=== PATIENT | male | born 1965 | race African-American/Black ===

== ENCOUNTER 2019-09-05 06:07 | Emergency (ER) | payer BC, MEDICAID ==
[~2019-09-05] VITALS: Ht 175.3 cm; Wt 75.0 kg
[2019-09-05] MEDS ORDERED: ONDANSETRON 4MG/2ML VIAL (J2405) IV ONE (06:45)
[2019-09-05] MEDS ORDERED: MORPHINE 4 MG/ML 1ML VIAL/SYRINGE (J2270) IV ONE (06:45)
[2019-09-05] MEDS ORDERED: NS 1,000 ML IV ONE (06:45)
[2019-09-05 07:02] LABS: BASO % 0.2 % (0.0-1.0); EOS # 0.1 10^3/uL (0.0-0.5); HEMATOCRIT 40.2 % (42.0-52.0); HEMOGLOBIN 13.3 g/dl (13.5-17.5); LYMPH # 1.8 10^3/uL (1.5-5.0); MEAN CORPUSCULAR HEMOGLOBIN 29.4 pg (27.0-33.0); MEAN CORPUSCULAR HGB CONC 33.1 g/dl (32.0-36.5); MEAN CORPUSCULAR VOLUME 88.7 fl (80.0-96.0); MONO # 0.8 10^3/uL (0.0-0.8); MONO % 9.3 % (0.0-5.0); NEUTROPHILS # 5.4 10^3/uL (1.5-8.5); NEUTROPHILS % 67.3 % (36.0-66.0); PLATELET COUNT, AUTOMATED 241 10^3/uL (150-450); RED BLOOD COUNT 4.53 10^6/uL (4.30-6.10); WHITE BLOOD COUNT 8.1 10^3/uL (4.0-10.0)
[2019-09-05 07:13] LABS: INR 0.98; PROTHROMBIN TIME 12.7 SECONDS (11.8-14.0)
[2019-09-05 07:14] LABS: PARTIAL THROMBOPLASTIN TIME 35.5 SECONDS (25.0-38.4)
[2019-09-05 07:28] LABS: ALBUMIN 3.7 GM/DL (3.2-5.2); ALT/SGPT 21 U/L (12-78); BILIRUBIN,DIRECT 0.1 MG/DL (0.0-0.2); BILIRUBIN,TOTAL 0.3 MG/DL (0.2-1.0); BLOOD UREA NITROGEN 8 MG/DL (7-18); CALCIUM LEVEL 8.9 MG/DL (8.5-10.1); CARBON DIOXIDE LEVEL 27 MEQ/L (21-32); CHLORIDE LEVEL 108 MEQ/L (98-107); CK-MB VALUE MASS < 1.0 NG/ML (<3.6); CPK CREATINE PHOSPHOKINASE 112 U/L (39-308); CREATININE FOR GFR 0.77 MG/DL (0.70-1.30); GLOMERULAR FILTRATION RATE > 60.0 (>56); GLUCOSE, FASTING 90 MG/DL (70-100); LIPASE 89 U/L (73-393); MB/CK RELATIVE INDEX 0.89 (< OR =4); POTASSIUM SERUM 4.1 MEQ/L (3.5-5.1); SODIUM LEVEL 139 MEQ/L (136-145); TOTAL PROTEIN 7.1 GM/DL (6.4-8.2); TROPONIN I < 0.02 NG/ML (< 0.10)
[2019-09-05 07:53] LABS: D-DIMER QUANT 560.39 ng/ml (<500)
[2019-09-05] MEDS ORDERED: KETOROLAC 30 MG/ML VIAL (J1885) IV ONE (08:00)
--- NOTE | 2019-09-05 08:01 | ECGEPIP ---
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
[2019-09-05] MEDS ORDERED: ISOVUE-370 76% 100ML VIAL (Q9967) As Ordered ONE (08:06)
--- NOTE | 2019-09-05 08:06 | REP ---
Clinical: Chest pain. Comparison: 12/01/2015. Findings: There is a vague ovoid opacity in the left base require further investigation. Mediastinum and cardiac silhouette are normal. Lung seay are otherwise clear. No effusion. No pneumothorax. Skeletal structures are intact. Impression: A vague 3 cm ovoid density in the left base requires further investigation. Chest CT with contrast is recommended. Electronically Signed by Frederic Blount MD 09/05/2019 07:58 A
--- NOTE | 2019-09-05 08:49 | REP ---
Clinical: Acute chest pain with dyspnea and elevated D-dimer levels . Technique: Axial contrast enhanced images from the thoracic inlet to the upper abdomen using 75 ml Isovue 370 intravenous contrast material with coronal and sagittal re-formations. Findings: Satisfactory enhancement of the pulmonary vasculature is achieved and no filling defects are identified to suggest pulmonary embolus. Thoracic aorta is normal caliber without aneurysm or dissection. Heart and pericardium are normal. Atherosclerotic changes to the thoracic aorta and coronary arteries are identified. Lung seay demonstrate mild chronic interstitial changes along with trace bibasilar atelectasis. There is a 2.5 cm mass in the left lung base (image 73), and a 1.4 cm focal non solid density in the right lower lobe (image 42). Minimal subcarinal and left hilar lymph nodes are nonspecific. No pleural effusion. No pneumothorax. Tracheobronchial tree is patent. Impression: 1. No evidence for pulmonary embolus. 2. A 2.5 cm mass in the left lung base warrants further investigation and consultation. 3. Small non solid focus in the right lower lobe and minimal right basilar atelectasis are also identified. Electronically Signed by Frederic Blount MD 09/05/2019 08:40 A
[2019-09-05 10:11] VITALS: BP 155/86
--- NOTE | 2019-09-05 15:40 | ED PDOC ---
Post-Departure Follow-Up dr gayle faxed formal report of cta chest for fu Taty Boone MD Sep 05, 2019 15:40
== END 2019-09-05 10:20 | disposition home or self-care (01) ==
LOC: M ED 06:07
DX: R07.9 Chest pain, unspecified (principal); R91.8 Other nonspecific abnormal finding of lung field; F17.210 Nicotine dependence, cigarettes, uncomplicated
CPT/HCPCS: 71045; 71275; 80048; 80076; 82550; 82553; 83690; 85025; 85379; 85610; 85730; 93005; 96361; 96374; 99284; J1885; Q9967

== ENCOUNTER → 2019-09-06 | Outpatient (REF) | payer MEDICAID ==
[2019-09-06 17:46] LABS: INR 1.01
== END ==
LOC: M LAB REF 16:46
PROVIDERS: ATTEND Internal Medicine Pulmonary Disease
DX: R91.8 Other nonspecific abnormal finding of lung field (principal)

== ENCOUNTER → 2019-09-14 | Outpatient (CLI) | payer MEDICAID ==
--- NOTE | 2019-09-14 09:23 | PFTRPT ---
Site: [facility], [address] [place] [address], [address] ID: [id number] Name: CALVIN VALLECILLO Visit Date: 09/14/2019 Second ID: [id number] Referring Doctor: Kelvin Hair D.O. Reviewing Doctor: Darren Fletcher MD Evaluation Advisor: Epi HENDRIX RRT Age: 53 : 1965 Sex: Male Race: Black Height: 69.00 Inches Weight: 163.00 Lbs BSA: 1.89 Order IDs: [id number] Requested Test(s): <RESP-PFT.PFT B/A> Diagnosis: R91.8 test meet the ATS standards for acceptability and repeatability. Pt was given four puffs of albuterol for postbronchodilator. Review Status: Not Reviewed Pre-Bronch Post-Bronch Pred Actual %Pred Actual %Chng SPIROMETRY FVC (L) 3.96 3.71 93 4.16 12 FEV1 (L) 3.13 2.80 89 3.18 13 FEV1/FVC (%) 79 75 95 76 1 FEF 25% (L/sec) 7.12 5.03 70 6.38 26 FEF 50% (L/sec) 4.42 2.81 63 3.77 34 FEF 75% (L/sec) 1.45 0.79 54 1.64 109 FEF 25-75% (L/sec) 3.03 2.11 69 3.27 55 FEF Max (L/sec) 8.38 6.51 77 8.19 25 FIVC (L) 3.74 4.16 11 FIF 50% (L/sec) 4.85 2.84 58 3.25 14 FIF Max (L/sec) 3.75 4.95 31 MVV (L/min) 143 81 56 Expiratory Time (sec) 6.74 7.65 13 Back Extrap Vol (L) 0.11 0.18 62 Time To FEFmax (sec) 0.079 0.098 23 LUNG VOLUMES SVC (L) 4.70 3.67 78 IC (L) 3.30 2.38 72 ERV (L) 1.40 1.29 92 TGV (L) 3.48 3.99 114 RV (Pleth) (L) 2.08 2.70 129 TLC (Pleth) (L) 6.78 6.37 93 RV/TLC (Pleth) (%) 31 42 136 DIFFUSION DLCOunc (ml/min/mmHg) 29.18 22.23 76 DLCOcor (ml/min/mmHg) 29.18 22.62 77 DL/VA (ml/min/mmHg/L) 4.30 4.25 98 VA (L) 6.78 5.32 78 BHT (sec) 10.18 IVC (L) 3.40 TLC (SB) (L) 5.47 AIRWAYS RESISTANCE Raw (cmH2O/L/s) 1.45 1.12 76 Gaw (L/s/cmH2O) 1.03 0.90 87 sRaw (cmH2O*s) 4.76 4.63 97 sGaw (1/cmH2O*s) 0.20 0.22 108 BLOOD GASES Hgb (gm/dL) 14.0
== END ==
LOC: M CARPUL 08:40
PROVIDERS: ATTEND Internal Medicine Pulmonary Disease
DX: R91.1 Solitary pulmonary nodule (principal)

== ENCOUNTER → 2019-09-19 | Outpatient (CLI) | payer MEDICAID ==
--- NOTE | 2019-09-19 18:22 | REP ---
HISTORY: Cough. The patient is status post left lung biopsy. The prior post biopsy chest radiograph of 09/15/2019 was reviewed. A subtle left lower lobe patchy opacity is again noted with slight CP angle blunting. This has not changed significantly compared to the prior examination although the prior exam is a frontal view only. The right lung is clear and stable. The heart is not enlarged. There is no change in the osseous structures. IMPRESSION: Persistent left lower lobe opacity as described above. Electronically Signed by Hamilton Dia DO 09/19/2019 07:30 P
== END ==
LOC: M RAD 16:56
PROVIDERS: ATTEND Internal Medicine Pulmonary Disease
DX: R91.8 Other nonspecific abnormal finding of lung field (principal)

== ENCOUNTER → 2019-10-17 | Outpatient (CLI) | payer OTHER ==
--- NOTE | 2019-10-18 06:59 | REP ---
Clinical: Follow up abnormal findings. Technique: Axial noncontrast images from the thoracic inlet to the upper abdomen with coronal and sagittal re-formations. Comparison: 09/05/2019. Findings: Somewhat irregular linear opacity in the left base at the site of previous presumed mass suggests atelectasis and possible postsurgical changes. The remainder of lung seay are well-aerated and clear. No new consolidation, nodule or mass lesion is identified. No obvious adenopathy. Tracheobronchial tree is patent. No effusion. No pneumothorax. Mediastinum demonstrates atherosclerotic changes to the thoracic aorta and coronary arteries without aortic aneurysm or cardiomegaly. No pericardial effusion. Musculoskeletal structures are intact without acute focal osseous abnormality. Impression: 1. Moderate amount of focal linear fibroatelectatic changes at the site of previously noted mass. Underlying lesion cannot definitively be identified. 2. No further acute mediastinal or pleuroparenchymal process appreciated. Electronically Signed by Frederic Blount MD 10/18/2019 06:51 A
== END ==
LOC: M RAD 10:07
PROVIDERS: ATTEND Internal Medicine Pulmonary Disease
DX: R91.8 Other nonspecific abnormal finding of lung field (principal)

== ENCOUNTER 2021-03-27 11:26 | Day surgery (SDC) | payer OTHER ==
[~2021-03-27] VITALS: Ht 175.3 cm; Wt 79.4 kg
--- OUTSIDE RECORDS SUMMARY | 2021-03-27 11:31 | CCD ---
Author Author [facility] Organization [facility] Address Unknown Phone Unavailable Support Name Relationship Address Phone NO, CONTACT Next Of Kin Unknown Unavailable UE Next Of Kin Unknown Unavailable [place] MAT[place] Next Of [place] [address] [place] [address] [place] [address] REJI VALLECILLOLINE Next Of Kin [address] [place] [address] Re-disclosure Warning The records that you are about to access may contain information from federally-assisted alcohol or drug abuse programs. If such information is present, then the following federally mandated warning applies: This information has been disclosed to you from records protected by federal confidentiality rules (42 CFR part 2). The federal rules prohibit you from making any further disclosure of this information unless further disclosure is expressly permitted by the written consent of the person to whom it pertains or as otherwise permitted by 42 CFR part 2. A general authorization for the release of medical or other information is NOT sufficient for this purpose. The Federal rules restrict any use of the information to criminally investigate or prosecute any alcohol or drug abuse patient.The records that you are about to access may contain highly sensitive health information, the redisclosure of which is protected by Article 27-F of the [facility] Public Health law. If you continue you may have access to information: Regarding HIV / AIDS; Provided by facilities licensed or operated by the [facility] Office of Mental Health; or Provided by the [facility] Office for People With Developmental Disabilities. If such information is present, then the following [facility] mandated warning applies: This information has been disclosed to you from confidential records which are protected by state law. State law prohibits you from making any further disclosure of this information without the specific written consent of the person to whom it pertains, or as otherwise permitted by law. Any unauthorized further disclosure in violation of state law may result in a fine or usp sentence or both. A general authorization for the release of medical or other information is NOT sufficient authorization for further disc losure. Medications No Information Insurance Providers Payer name Policy type / Coverage type Policy ID Covered libertarian ID Covered libertarian's relationship to escobar Policy Escobar Plan Information JONO I [id number] Self [id number] JONO I [id number] Self [id number] MEDICAID [id number] SP [id number] MEDICAID SP [id number] [facility] FEDERAL EMPLOYEE PROGRAM [id number] SP [id number] [facility] [id number] SP [id number] JONO [id number] SP [id number] SELF PAY UNAVAILABLE SP UNAVAILA BLE JONO [facility] [id number] S [id number] Problems, Conditions, and Diagnoses No Information Surgeries/Procedures No Information Results No Information Social History No Information
--- OUTSIDE RECORDS SUMMARY | 2021-03-27 12:24 | CCD ---
Author Author [facility] Organization [facility] Address Unknown Phone Unavailable Support Name Relationship Address Phone NO, CONTACT Next Of Kin Unknown Unavailable UE Next Of Kin Unknown Unavailable [place] Next Of Kin [address] [place] [address] [place] CIVILIAN [place] [address] REJI VALLECILLOLINE Next Of Kin [address] [place] [address] Re-disclosure Warning The records that you are [...] is protected by Article 27-F of the [place] Public Health law. If you continue you may have access to information: Regarding HIV / AIDS; Provided by facilities licensed or operated by the [place] Office of Mental Health; or Provided by the [place] Office for People With Developmental Disabilities. If such information is present, then the following [place] mandated warning applies: This information has been [...] law may result in a fine or [place] [facility] sentence or both. A general authorization for the release of medical or other information is NOT sufficient authorization for further disc losure. Medications No Information Insurance Providers Payer name Policy type / Coverage type Policy ID Covered green party ID Covered green party's relationship to escobar Policy Escobar Plan Information JONO I [id number] Self [id number] JONO I [id number] Self [id number] MEDICAID [id number] SP [id number] MEDICAID SP [id number] [facility] FEDERAL EMPLOYEE PROGRAM [id number] SP [id number] [facility] [id number] SP [id number] JONO [id number] SP [id number] SELF PAY UNAVAILABLE SP UNAVAILA BLE JONO [facility] [id number] S [id number] Problems, Conditions, and Diagnoses No Information Surgeries/Procedures No Information Results No Information Social History No Information
--- NOTE | 2021-03-27 13:19 | REP ---
INDICATION: rolled over by trailer COMPARISON: None. TECHNIQUE: AP, lateral, bilateral oblique views. FINDINGS: Comminuted mildly displaced fractures involving the medial malleolus and distal fibular metaphysis. Ankle dislocation at the tibiotalar joint and surrounding soft tissue swelling noted. IMPRESSION: Bimalleolar ankle fracture dislocation. <Electronically signed by Frederic Blount > 03/27/21 [id number]
[2021-03-27] MEDS ORDERED: MORPHINE 2 MG/ML 1ML VIAL (J2270) IV PRN (13:35)
[2021-03-27] MEDS ORDERED: NS 1,000 ML IV ONE (13:35)
--- NOTE | 2021-03-27 14:02 | REP ---
INDICATION: preop COMPARISON: 09/19/2019 TECHNIQUE: Portable AP view of the chest FINDINGS: The mediastinum and cardiac silhouette are stable and within normal limits for portable technique. The lung seay demonstrate minimal chronic changes at the left base and the previously noted left lower lobe infiltrate has resolved. No acute consolidation, effusion, or pneumothorax. Skeletal structures are intact. IMPRESSION: No acute cardiopulmonary process appreciated. <Electronically signed by Frederic Blount > 03/27/21 [id number]
[2021-03-27 14:11] LABS: BASO % 0.6 % (0.0-1.0); EOS # 0.1 10^3/uL (0.0-0.5); HEMATOCRIT 40.3 % (42.0-52.0); HEMOGLOBIN 12.9 g/dl (13.5-17.5); LYMPH # 2.2 10^3/uL (1.5-5.0); LYMPH % 31.5 % (24.0-44.0); MEAN CORPUSCULAR HEMOGLOBIN 29.1 pg (27.0-33.0); MONO # 0.5 10^3/uL (0.0-0.8); MONO % 7.4 % (2.0-8.0); NEUTROPHILS # 4.1 10^3/uL (1.5-8.5); NEUTROPHILS % 59.1 % (36.0-66.0); PLATELET COUNT, AUTOMATED 421 10^3/uL (150-450); RED BLOOD COUNT 4.43 10^6/uL (4.30-6.10); WHITE BLOOD COUNT 6.9 10^3/uL (4.0-10.0)
[2021-03-27 14:59] LABS: ALBUMIN 3.9 GM/DL (3.2-5.2); ALT/SGPT 34 U/L (12-78); BILIRUBIN,TOTAL 0.4 MG/DL (0.2-1.0); BLOOD UREA NITROGEN 12 MG/DL (7-18); CALCIUM LEVEL 9.4 MG/DL (8.5-10.1); CARBON DIOXIDE LEVEL 25 MEQ/L (21-32); CHLORIDE LEVEL 107 MEQ/L (98-107); CREATININE FOR GFR 0.95 MG/DL (0.70-1.30); GLOMERULAR FILTRATION RATE > 60.0 (>56); GLUCOSE, FASTING 81 MG/DL (70-100); POTASSIUM SERUM 5.1 MEQ/L (3.5-5.1); SODIUM LEVEL 138 MEQ/L (136-145); TOTAL PROTEIN 7.6 GM/DL (6.4-8.2)
[2021-03-27 15:05] LABS: RSV AMPLIFICATION NEGATIVE (NEGATIVE)
[2021-03-27] MEDS ORDERED: HOME MED LIST COMPLETE! XX SCH (15:20)
[2021-03-27] MEDS ORDERED: PERCOCET 5MG/325MG TAB PO PRN (16:00)
[2021-03-27] MEDS ORDERED: ACETAMINOPHEN TAB 650MG DOSE (2X325MG) PO PRN (16:00)
[2021-03-27] MEDS ORDERED: BISACODYL 10 MG SUPP PR PRN (16:00)
[2021-03-27] MEDS ORDERED: ONDANSETRON 4 MG TAB PO PRN (16:00)
[2021-03-27] MEDS ORDERED: NS 1,000 ML IV SCH (16:00)
--- NOTE | 2021-03-27 16:41 | ER ---
ER CONSULTATION DATE: 03/27/2021 CHIEF COMPLAINT: Left ankle fracture. HISTORY OF PRESENT ILLNESS: This 55-year-old man is seen today at [facility] at approximately 3:30pm. He got his ankle ran over while at work by a tractor today. [place] doing [place] work. No other injuries or pain. PMHx: None. MEDICATIONS: None. ALLERGIES: No known drug allergies. SOCIAL HISTORY: He smokes up to 10 cigarettes a day, sometimes more. No drug abuse. He works in [employer] and [employer]. This is a work-related injury. He lives with his . PHYSICAL EXAMINATION: He is a well-appearing, 55-year-old man who looks stated age. There is mild to moderate swelling of the left ankle, closed injury. No abrasions. Strong dorsalis pedis pulse. Able to wiggle his toes. Pain to palpation about the ankle. No pain in the syndesmosis. Calf is soft. No pain up the ankle or at the knee. Foot is warm, well perfused. Normal sensation superficial and deep peroneal nerves as well as saphenous, sural, tibial. Radiographs, left ankle, show a bimalleolar displaced ankle fracture, lateral displacement of the talus. Appears to be a level B ankle fracture. Mild comminution. No obvious posterior malleolus fragment. ASSESSMENT AND PLAN: A 55-year-old man with a displaced bimalleolar left ankle fracture. This is generally recommended for surgical fixation with open reduction, internal fixation. We discussed the pros, cons, risks, benefits of nonoperative versus operative intervention. He wished to go ahead with surgery. Risks of surgery were discussed that include, but are not limited, infection, pain, stiffness, weakness, osteoarthritis, damage to other structures, neurovascular injury, delayed, mal, or nonunion, anesthetic complications, blood clots, , and other risks. I explained the surgery as well as aftercare. Nonweightbearing 6 weeks. progress weightbearing after that. Two weeks in a cast. Start some early range of motion after that. I would like him to rest, ice, and elevate the ankle for now. I will be shortly in contact with the operating theater to determine if this case has a potential to be performed earlier or delayed. For now I have not put him in a splint pending determination of available for operating room time. I will let the patient know. I also consented him for possibility of need for blood products as well as surgery, left ankle open reduction, internal fixation. He understands and had no further questions and agreed with the plan. NPO for now, admit under myself as healthy man no medical problems, COVID negative. JANET
--- OUTSIDE RECORDS SUMMARY | 2021-03-27 16:41 | CCD ---
Author Author [facility] Organization [facility] Address Unknown Phone Unavailable Support Name Relationship Address Phone NO, CONTACT Next Of Kin Unknown Unavailable UE Next Of Kin Unknown Unavailable [place] Next Of Kin [address] [place] [address] [place] [address] REJI VALLECILLOLINE Next Of Kin [address] [place] [address] Re-disclosure Warning The records that you are [...] is protected by Article 27-F of the [facility] Public Health law. If you continue you may have access to information: Regarding HIV / AIDS; Provided by facilities licensed or operated by the [facility] Office of Mental Health; or Provided by the [facility] Office for People With Developmental Disabilities. If such information is present, then the following [facility] mandated warning applies: This information has [...] law may result in a fine or snf sentence or both. A general authorization for the release of medical or other information is NOT sufficient authorization for further disc losure. Medications No Information Insurance Providers Payer name Policy type / Coverage type Policy ID Covered green party ID Covered green party's relationship to escobar Policy Escobar Plan Information [facility] I [id number] Self [id number] [facility] I [id number] Self [id number] MEDICAID [id number] SP [id number] MEDICAID SP [id number] [facility] FEDERAL EMPLOYEE PROGRAM [id number] SP [id number] [facility] [id number] SP [id number] [facility] [id number] SP [id number] 900 SELF PAY UNAVAILABLE SP UNAVAILA BLE [facility] [id number] S [id number] Problems, Conditions, and Diagnoses No Information Surgeries/Procedures No Information Results No Information Social History No Information
[2021-03-27 22:40] VITALS: BP 125/80
[2021-03-27] MEDS: NS 1,000 ML IV SCH (23:32)
[2021-03-27] MEDS: NORCO, ANEXSIA 5/325MG TABLET (HYDROcodone/ACETAMINOPHEN) PO PRN (23:33)
--- NOTE | 2021-03-27 23:40 | IPN ---
PROGRESS NOTE DATE: 03/27/2021 CHIEF COMPLAINT: Fall with left ankle fracture. HISTORY OF PRESENT ILLNESS: Patient is a 55-year-old male who sustained an unstable displaced primarily left ankle fracture. Planned for surgery as an add-on case. Unfortunately there have been a number of add-ons that have bumped this case from occurring this evening, and I let the patient know this. As such he is desiring to be diet as tolerated, he would eat and drink and be n.p.o. at midnight. We will plan for first add-on case tomorrow in the hopefully early afternoon. In the meantime, I have gone ahead and placed a below knee three sided well padded Plaster of [place]ksana splint with the foot and ankle in neutral gentle three-point molding to prevent swelling, overwrapped with 6 inch JUSTIN bandage. Patient understands. I will go ahead and make him diet as tolerated. I let his nursing staff know as well. Patient is understanding and in agreement with the plan.
[2021-03-28] MEDS: NS 1,000 ML IV SCH ×2 (05:00→12:12)
[2021-03-28] MEDS: NORCO, ANEXSIA 5/325MG TABLET (HYDROcodone/ACETAMINOPHEN) PO PRN (05:01)
[2021-03-28 06:25] VITALS: BP 138/81
--- NOTE | 2021-03-28 08:17 | ECGEPIP ---
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
[2021-03-28] MEDS ORDERED: propofoL 200 MG/20 ML VIAL As Ordered ONE (12:45)
[2021-03-28] MEDS ORDERED: fentaNYL 100 MCG/2 ML INJECTION (J3010) As Ordered ONE (12:45)
[2021-03-28] MEDS ORDERED: KETOROLAC 60MG 2ML VIAL As Ordered ONE (12:45)
[2021-03-28] MEDS ORDERED: MIDAZOLAM INJ 2MG/2ML VIAL (J2250 PER 1MG) As Ordered ONE (12:45)
[2021-03-28] MEDS ORDERED: HYDROmorphone HCL 2 MG/ML 1ML VIAL As Ordered ONE (12:45)
[2021-03-28] MEDS ORDERED: ONDANSETRON 4MG/2ML VIAL As Ordered ONE (12:45)
[2021-03-28] MEDS ORDERED: ROCURONIUM BROMIDE 50 MG/5 ML VIAL As Ordered ONE (12:45)
[2021-03-28] MEDS ORDERED: LIDOCAINE 2% 100MG/5ML SDV (FOR ANES.) As Ordered ONE (12:45)
[2021-03-28] MEDS ORDERED: dexameTHASONE 4 MG/ML 1ML VIAL (J1100 PER 1MG) As Ordered ONE (12:45)
[2021-03-28] MEDS ORDERED: SUGAMMADEX SODIUM 500 MG/5 ML VIAL (BRIDION) As Ordered ONE (12:45)
[2021-03-28] MEDS ORDERED: ACETAMINOPHEN 1000MG 100ML IV BTL (OFIRMEV) (J0131 PER 10MG) As Ordered ONE (12:46)
[2021-03-28] MEDS ORDERED: dexameTHASONE 10MG/1ML VIAL PRES.FREE (J1100 PER 1MG) XX ONE (13:00)
[2021-03-28] MEDS ORDERED: ROPIvacaine 0.5% 30ML INJECTION (J2795 PER 1MG) XX ONE (13:00)
[2021-03-28] MEDS ORDERED: LIDOCAINE 1% MDV 20ML VIAL XX ONE (13:00)
[2021-03-28] MEDS: fentaNYL 100 MCG/2 ML INJECTION (J3010) IV PRN ×2 (13:20→13:22)
[2021-03-28] MEDS: MIDAZOLAM INJ 2MG/2ML VIAL (J2250 PER 1MG) IV PRN ×2 (13:20→13:22)
[2021-03-28] MEDS ORDERED: ceFAZolin 2 GM/D5W 50 ML IV BAG (J0690 PER 500MG) As Ordered ONE (13:50)
[2021-03-28] MEDS ORDERED: ePHEDrine SULFATE 25 MG/5 ML(5MG/ML) SYRINGE As Ordered ONE (14:19)
--- NOTE | 2021-03-28 16:08 | ROOPDOC ---
[facility] Report Of Operation Report of Operation DATE OF PROCEDURE: 03/28/21 PREPROCEDURE DIAGNOSES: Left ankle fracture. POSTPROCEDURE DIAGNOSES: Same. PROCEDURE PERFORMED: Left ankle open reduction internal fixation. SURGEON: Dr. Cortes Strange MD DRY MAN: None ANESTHESIA: General anesthesia and block Dr. Meyer. ESTIMATED BLOOD LOSS: Approximately 50 mL. COMPLICATIONS: None. REMARKS: None. FINDINGS: Unstable bimalleolar ankle fracture SPECIMENS REMOVED: None PROCEDURE NOTE: This 55-year-old man sustained an unstable displaced bimalleolar ankle fracture. I discussed the pros and cons risk benefits of nonoperative versus surgical open reduction internal fixation. He wished to proceed. I marked the left lower extremity. He had no further questions. DESCRIPTION OF PROCEDURE: Patient was brought to the operating room theater. He was placed supine on the operating table. Bump under the left hip. 30 inch tourniquet applied to the left thigh appropriately padded. Bone foam leg elevator positioner was used. 2 g IV Ancef ministered prior to the start of the case.. General anesthesia was induced. Left lower extremity prepped and draped in the usual sterile fashion allowing over 3 minutes prep solution drying time prior to draping. Chlorhexidine-based prep solution was used. Preoperative timeout performed to confirm the site patient and surgery. I began by elevating limb inflated the tourniquet to 250 mmHg. Made a standard lateral incision at the distal fibula. I carried dissection down through skin and subcutaneous tissue achieve meticulous hemostasis. There was a butterfly fragment posteriorly. This is a bending wedge type fragment. I was unable to obtain a lag screw fixation. I used 15 blade as well as curettes and rongeurs to remove any interposed soft tissue and hematoma and periosteum. I achieved preliminary reduction, out to length using pointed reduction forceps and manipulation of the foot. I placed a K wire across the fracture site. I used a [employer] precontoured 7-hole left lateral distal fibula locking plate. Placed this on the lateral cortex. I used one 3.5 mm fully threaded cortical screw 16 mm long, placed it proximal to the fracture site to secure the plate down to bone. I then placed the locking distal screws 2.7 mm 14 mm, 16 mm x3, and 18 mm. I then placed the other 2 proximal fully threaded 3.5 mm cortical screws both 14 mm long. This achieved good reduction and the fracture out to length on both AP and lateral radiographs. Syndesmosis appeared stable. Normal "dime sign" . Next I turned my attention to the medial side. I made a standard longitudinal slightly curved anteriorly at the distal part incision centered over the anteromedial aspect of the medial malleolus. Carried dissection down through skin and subcutaneous tissue achieved meticulous hemostasis. I retracted the saphenous vein anteriorly. Identified the fracture site. I cleared away any interposed fracture hematoma and periosteum. I thoroughly irrigated the joint. The cartilage on the talus appeared normal. Made sure that there was one loose body that I removed from the joint. I achieved a preliminary reduction using small pointed fracture forceps and a small 2.0 mm hole proximal to the fracture. This achieved good anatomic reduction. I took intraoperative radiographs as well as direct visualization both anteriorly as well as direct medially at the fracture site. I passed 2 guidewires collinear on both AP and lateral radiographs. I overdrilled the proximal cortex and then placed 2 50 mm long 4.0 mm partially-threaded cancellous screws over top of the guidewires and then remove the guide wires. I took final radiographs. I performed an external rotation stress test as well as a cotton hook test. Syndesmosis appeared stable. Mortise appeared normal and anatomic. Radiographs were taken and saved onto the system AP lateral and mortise view. Tourniquet let down wound thoroughly irrigated followed by subcutaneous tissue closed with 2-0 Vicryl sutures and skin with cecelia. Skin was cleaned with wet and dry dressing followed application of Adaptic 4 by 8 gauze abdominal pad dressings and sterile cast padding. I fashioned a below knee 3 sided plaster Oksana splint with the foot in neutral overwrapped with sterile 6 inch Michael bandages and allowed to fully dry. Patient woken up from general anesthetic transferred off the operating room table and taken to postanesthetic care unit in stable condition. All sponge needle instrument counts were correct. No complications. Plan to the patient discharged home according to day surgery criteria when they are comfortable and safely mobilizing with crutches nonweightbearing for 6 weeks. Follow-up in the office in 2 weeks time. Prescription will be sent in electronically to [facility] - pharmacy of choice. Discontinue the cecelia in 2 weeks time. Elevate the limb. Postoperative wound instructions were given. It was recommended to keep the wound clean and dry. Dressing changes as needed. It was reinforced with the patient that they should call us or be seen immediately for redness, drainage, or fever. Risk factors for harms from taking opioid medications discussed and assessed including but not limited to personal or family history of substance use disorder, anxiety or depression, , age 65 or older, COPD or other underlying respiratory conditions, and renal or hepatic insufficiency. Discussed with patient concerns and determined any harms they may experience or be currently experiencing such as nausea or constipation, feeling sedated or confused, breathing interruptions during sleep, or taking or craving more opioids than prescribed or difficulty controlling use (addiction). Discussed early warning signs of overdose including confusion, sedation, slurred speech, abnormal gait. CORTES STRANGE MD Mar 28, 2021 16:08
--- NOTE | 2021-03-28 16:12 | REP ---
INDICATION: LEFT ANKLE FRACTURE. COMPARISON: 03/27/2021. TECHNIQUE: Multiple C-arm views left ankle. FINDINGS: There is placement of metallic internal fixation in the distal fibula, with a plate and multiple screws. Screws are seen in the medial malleolus. The ankle mortise is anatomic and the visualized osseous structures appear well aligned. IMPRESSION: 63 seconds of fluoroscopy time was utilized. <Electronically signed by Mo Uribe > 03/28/21 [id number]
[2021-03-28] MEDS ORDERED: ONDANSETRON 4MG/2ML VIAL IV PRN ×2 (16:20→16:25)
[2021-03-28] MEDS ORDERED: HYDROMORPHONE HCL 0.5 MG/ 0.5 ML SYRINGE (J1170 PER 1) IV PRN (16:20)
[2021-03-28] MEDS ORDERED: oxyCODONE 5MG TAB PO PRN (16:20)
[2021-03-28] MEDS ORDERED: LR 1,000 ML IV SCH ×2 (16:20→16:25)
[2021-03-28] MEDS ORDERED: fentaNYL 100 MCG/2 ML INJECTION (J3010) IV PRN (16:20)
[2021-03-28 16:25] VITALS: BP 138/74
[2021-03-28] MEDS ORDERED: PERCOCET 5MG/325MG TAB PO PRN (16:25)
[2021-03-28] MEDS ORDERED: ACETAMINOPHEN TAB 650MG DOSE (2X325MG) PO PRN (16:25)
[2021-03-28] MEDS ORDERED: MORPHINE 2 MG/ML 1ML VIAL (J2270) IV PRN (16:30)
[2021-03-28 16:55] VITALS: BP 102/74
[2021-03-28 17:25] VITALS: BP 136/72
[2021-03-28 18:25] VITALS: BP 118/68
== END 2021-03-28 19:30 | disposition home or self-care (01) ==
LOC: M ED 11:26 → M SDC 11:27 → M MSPAV 22:39 → M SDC 03-28 19:30
PROVIDERS: ATTEND Orthopaedic Surgery Sports Medicine
DX: S82.842A Displaced bimalleolar fracture of left lower leg, initial encounter for closed fracture (principal); V84.7XXA Person on outside of special agricultural vehicle injured in nontraffic accident, initial encounter; Y92.89 Other specified places as the place of occurrence of the external cause; Y93.89 Activity, other specified; Y99.0 Civilian activity done for income or pay; F17.210 Nicotine dependence, cigarettes, uncomplicated
CPT/HCPCS: 27814; 71045; 73610; 76000; 80053; 85025; 86850; 86900; 86901; 87631; 93005; 96374; 99284; C1713; J0131; J0690; J1100; J1170; J1885; J2250; J2270; J2405; J3010

== ENCOUNTER → 2021-04-14 | Outpatient (CLI) | payer OTHER ==
--- NOTE | 2021-04-14 16:17 | REP ---
INDICATION: LT ANKLE SURGICAL AFTERCARE. COMPARISON: 03/27/2021 a pre operative exam TECHNIQUE: Three views FINDINGS: Since the last examination the patient has undergone ORIF. Internal fixation plate and fixing screws seen applied along the lateral distal fibular cortex affixing a previously described fibular fracture. There is are 2 cancellous screws seen affixing previously described medial malleolar fracture. The alignment appears near anatomical. The mortise is intact. There is no evidence of an acute osseous abnormality. IMPRESSION: Status post ORIF as described above. <Electronically signed by Hamilton Dia > 04/14/21 [id number]
== END ==
LOC: M SOG 09:15
PROVIDERS: ATTEND Orthopaedic Surgery Sports Medicine
DX: Z48.89 Encounter for other specified surgical aftercare (principal)

== ENCOUNTER → 2021-05-15 | Outpatient (CLI) | payer OTHER ==
--- NOTE | 2021-05-15 11:12 | REP ---
INDICATION: LT ANKLE FX FOLLOW-UP. COMPARISON: 04/14/2021 TECHNIQUE: AP, lateral, oblique views of the left ankle FINDINGS: Satisfactory stable open reduction and fixation at medial and lateral malleoli. Overlying soft tissue swelling is again noted. Ankle mortise appears stable. No new acute process. IMPRESSION: Status post satisfactory bimalleolar fracture fixation. <Electronically signed by Frederic Blount > 05/15/21 [id number]
== END ==
LOC: M SOG 10:49
PROVIDERS: ATTEND Orthopaedic Surgery Sports Medicine
DX: Z48.89 Encounter for other specified surgical aftercare (principal); S82.842D Displaced bimalleolar fracture of left lower leg, subsequent encounter for closed fracture with routine healing

== ENCOUNTER → 2021-07-14 | Outpatient (RCR) | payer OTHER | LOC: M PT 12:54 | PROVIDERS: ATTEND Orthopaedic Surgery Sports Medicine | DX: Z47.89 Encounter for other orthopedic aftercare (principal) ==

== ENCOUNTER 2021-08-07 12:29 | Outpatient (RCR) | payer OTHER | END 2021-08-11 | LOC: M PT 12:29 | PROVIDERS: ATTEND Orthopaedic Surgery Sports Medicine | DX: Z47.89 Encounter for other orthopedic aftercare (principal) ==

== ENCOUNTER → 2021-09-02 | Outpatient (CLI) | payer OTHER | LOC: M SOG 15:01 | PROVIDERS: ATTEND Orthopaedic Surgery Sports Medicine | DX: S82.842D Displaced bimalleolar fracture of left lower leg, subsequent encounter for closed fracture with routine healing (principal); W18.30XD Fall on same level, unspecified, subsequent encounter ==

== ENCOUNTER → 2021-09-11 | Outpatient (CLI) | payer MEDICARE | LOC: M RAD 08:47 | PROVIDERS: ATTEND Nurse Practitioner Family | DX: Z12.2 Encounter for screening for malignant neoplasm of respiratory organs (principal); F17.210 Nicotine dependence, cigarettes, uncomplicated ==

== ENCOUNTER 2021-10-09 10:36 | Outpatient (RCR) | payer OTHER | END 2021-10-11 | LOC: M PT 10:36 | PROVIDERS: ATTEND Orthopaedic Surgery Sports Medicine | DX: Z47.89 Encounter for other orthopedic aftercare (principal) ==

== ENCOUNTER 2021-10-28 10:29 | Outpatient (RCR) | payer OTHER | END 2021-11-11 | LOC: M PT 10:29 | PROVIDERS: ATTEND Orthopaedic Surgery Sports Medicine | DX: Z47.89 Encounter for other orthopedic aftercare (principal) ==

== ENCOUNTER → 2021-12-08 | Outpatient (CLI) | payer OTHER | LOC: M SOG 08:03 | PROVIDERS: ATTEND Orthopaedic Surgery Hand Surgery | DX: S82.842D Displaced bimalleolar fracture of left lower leg, subsequent encounter for closed fracture with routine healing (principal); W18.30XD Fall on same level, unspecified, subsequent encounter ==

== ENCOUNTER 2022-01-05 14:30 | Outpatient (RCR) | payer OTHER | END 2022-01-11 | LOC: M PT 14:30 | PROVIDERS: ATTEND Orthopaedic Surgery Hand Surgery | DX: S82.842D Displaced bimalleolar fracture of left lower leg, subsequent encounter for closed fracture with routine healing (principal) ==

== ENCOUNTER → 2022-10-05 | Outpatient (REF) | LOC: M LAB 11:35 | PROVIDERS: ATTEND Nurse Practitioner Adult Health | DX: Z02.1 Encounter for pre-employment examination (principal) ==

== ENCOUNTER 2022-12-10 17:12 | Emergency (ER) | payer OTHER ==
[~2022-12-10] VITALS: Ht 177.8 cm; Wt 77.3 kg
[2022-12-10 17:21] VITALS: TEMP 97.7
[2022-12-10 17:43] LABS: VENOUS BASE EXCESS 2.2 (-2.0-2.0); VENOUS HCO3 25.4 MMOL/L (23.0-27.0); VENOUS O2 SATURATION 93.8 % (60.0-80.0); VENOUS PARTIAL PRESSURE CO2 35.3 mmHg (38.0-50.0); VENOUS PARTIAL PRESSURE O2 65.2 mmHg (30.0-50.0); VENOUS PH 7.475 UNITS (7.330-7.430); VENOUS STANDARD HCO3 26.3 MMOL/L; VENOUS TOTAL CO2 26.5 MMOL/L (24.0-28.0)
[2022-12-10 17:57] LABS: BASO % 0.4 % (0.0-1.0); EOS % 0.4 % (0.0-3.0); HEMATOCRIT 42.7 % (42.0-52.0); HEMOGLOBIN 14.5 g/dl (13.5-17.5); LYMPH # 2.5 10^3/uL (1.5-5.0); LYMPH % 53.1 % (24.0-44.0); MEAN CORPUSCULAR VOLUME 82.4 fl (80.0-96.0); MONO # 0.3 10^3/uL (0.0-0.8); MONO % 7.3 % (2.0-8.0); NEUTROPHILS # 1.8 10^3/uL (1.5-8.5); NEUTROPHILS % 38.4 % (36.0-66.0); PLATELET COUNT, AUTOMATED 110 10^3/uL (150-450); RED BLOOD COUNT 5.18 10^6/uL (4.30-6.10); WHITE BLOOD COUNT 4.7 10^3/uL (4.0-10.0)
[2022-12-10 18:21] LABS: ALBUMIN 4.2 G/DL (3.2-5.2); ALKALINE PHOSPHATASE 31 U/L (46-116); ALT/SGPT 109 U/L (7.0-40); AST/SGOT 125 U/L (<34); BILIRUBIN,DIRECT 0.2 MG/DL (<0.4); BILIRUBIN,TOTAL 0.5 MG/DL (0.3-1.2); BLOOD UREA NITROGEN 8 MG/DL (9-23); CARBON DIOXIDE LEVEL 26 MMOL/L (20-31); CHLORIDE LEVEL 102 MMOL/L (98-107); CREATININE FOR GFR 0.62 MG/DL (0.70-1.30); GLOMERULAR FILTRATION RATE > 60.0 (>56); GLUCOSE, FASTING 82 MG/DL (60-100); POTASSIUM SERUM 4.5 MMOL/L (3.5-5.1); SODIUM LEVEL 139 MMOL/L (136-145); TOTAL PROTEIN 7.5 G/DL (5.7-8.2)
[2022-12-10 18:23] LABS: THYROID STIMULATING HORMONE 1.709 uIU/ML (0.55-4.78); THYROXINE (T4) 6.1 UG/DL (4.5-10.9)
[2022-12-10 21:00] VITALS: BP 155/79
[2022-12-10 21:06] VITALS: O2SAT 100
== END 2022-12-10 21:15 | disposition home or self-care (01) ==
LOC: EDBD 17:12 → M ED 17:12
DX: R68.89 Other general symptoms and signs (principal); M79.89 Other specified soft tissue disorders; F43.9 Reaction to severe stress, unspecified; F17.210 Nicotine dependence, cigarettes, uncomplicated

== ENCOUNTER → 2022-12-28 | Outpatient (REF) | payer OTHER ==
[2022-12-28 18:42] LABS: INR 0.85; PROTHROMBIN TIME 11.8 SECONDS (12.5-14.5)
[2022-12-28 18:43] LABS: PARTIAL THROMBOPLASTIN TIME 30.7 SECONDS (24.8-34.2)
[2022-12-28 19:02] LABS: HEMOGLOBIN A1c 5.4 % (4.0-6.0)
[2022-12-28 19:09] LABS: ALKALINE PHOSPHATASE 39 U/L (46-116); ALT/SGPT 149 U/L (7.0-40); AST/SGOT 157 U/L (<34); BILIRUBIN,DIRECT 0.1 MG/DL (<0.4); BILIRUBIN,TOTAL 0.3 MG/DL (0.3-1.2); CHOLESTEROL LEVEL 176 MG/DL (<200); CHOLESTEROL RISK RATIO 1.97 (<5); HDL CHOLESTEROL 89.2 MG/DL (>40); LDL CHOLESTEROL 72.2 MG/DL (<100); NON-HDL-C 86.8 MG/DL; TOTAL PROTEIN 7.6 G/DL (5.7-8.2); TRIGLYCERIDES LEVEL 73 MG/DL (<150)
[2022-12-28 19:11] LABS: FERRITIN 413.1 NG/ML (10.5-307.3)
[2022-12-28 19:44] LABS: HEPATITIS C VIRUS ABY INDEX 0.18 INDEX (<0.8)
[2022-12-29 08:32] LABS: HEPATITIS B SURFACE ANTIBODY NEGATIVE (POSITIVE)
[2022-12-29 08:45] LABS: HEPATITIS B SURFACE ANTIGEN NEGATIVE (NEGATIVE)
== END ==
LOC: M LAB REF 18:03
PROVIDERS: ATTEND Nurse Practitioner Family
DX: R73.03 Prediabetes (principal); E78.5 Hyperlipidemia, unspecified; E74.01 von Gierke disease

== ENCOUNTER → 2023-02-09 | Outpatient (REF) | payer OTHER ==
[2023-02-09 17:41] LABS: IRON (FE) 73 UG/DL (65-175)
[2023-02-09 17:42] LABS: ALKALINE PHOSPHATASE 34 U/L (46-116); ALT/SGPT 23 U/L (7.0-40); AST/SGOT 9 U/L (<34); BILIRUBIN,TOTAL 0.4 MG/DL (0.3-1.2); BLOOD UREA NITROGEN 9 MG/DL (9-23); CALCIUM LEVEL 9.3 MG/DL (8.5-10.1); CARBON DIOXIDE LEVEL 26 MMOL/L (20-31); CHLORIDE LEVEL 107 MMOL/L (98-107); CREATININE FOR GFR 0.68 MG/DL (0.70-1.30); GLOMERULAR FILTRATION RATE > 60.0 (>56); GLUCOSE, FASTING 76 MG/DL (60-100); PERCENT SATURATION 24.3 % (19.7-50.0); POTASSIUM SERUM 4.3 MMOL/L (3.5-5.1); SODIUM LEVEL 140 MMOL/L (136-145); TOTAL IRON BINDING CAPACITY 301 UG/DL (250-425); TOTAL PROTEIN 7.2 G/DL (5.7-8.2)
[2023-02-09 18:20] LABS: HEPATITIS B CORE ANTIBODY IGM NEGATIVE (NEGATIVE)
== END ==
LOC: M LAB REF 16:39
PROVIDERS: ATTEND Nurse Practitioner Family
DX: R74.01 Elevation of levels of liver transaminase levels (principal); M79.89 Other specified soft tissue disorders

== ENCOUNTER → 2023-06-28 | Outpatient (REF) | payer OTHER ==
[2023-06-28 17:16] LABS: BLOOD UREA NITROGEN 12 MG/DL (9-23); CALCIUM LEVEL 9.1 MG/DL (8.5-10.1); CARBON DIOXIDE LEVEL 25 MMOL/L (20-31); CHLORIDE LEVEL 108 MMOL/L (98-107); GLOMERULAR FILTRATION RATE > 60.0 (>56); GLUCOSE, FASTING 84 MG/DL (60-100); POTASSIUM SERUM 4.3 MMOL/L (3.5-5.1); SODIUM LEVEL 140 MMOL/L (136-145)
== END ==
LOC: M LAB REF 16:15
PROVIDERS: ATTEND Nurse Practitioner Family
DX: Z79.899 Other long term (current) drug therapy (principal)

== ENCOUNTER → 2023-08-25 | Outpatient (REF) | LOC: M PLAIMG 10:47 | PROVIDERS: ATTEND Internal Medicine | DX: R52 Pain, unspecified (principal) ==

== ENCOUNTER 2023-10-23 17:08 | Emergency (ER) | payer OTHER ==
[~2023-10-23] VITALS: Ht 180.3 cm; Wt 75.0 kg
[2023-10-23] MEDS ORDERED: ISOVUE-370 76% 100ML VIAL As Ordered ONE (17:48)
[2023-10-23 17:50] LABS: BASO % 0.4 % (0.0-1.0); EOS % 0.1 % (0.0-3.0); HEMATOCRIT 40.1 % (42.0-52.0); HEMOGLOBIN 14.3 g/dl (13.5-17.5); LYMPH # 2.2 10^3/uL (1.5-5.0); LYMPH % 28.1 % (24.0-44.0); MEAN CORPUSCULAR HEMOGLOBIN 29.2 pg (27.0-33.0); MEAN CORPUSCULAR HGB CONC 35.7 g/dl (32.0-36.5); MEAN CORPUSCULAR VOLUME 81.8 fl (80.0-96.0); MONO # 0.6 10^3/uL (0.0-0.8); MONO % 7.5 % (2.0-8.0); NEUTROPHILS # 4.9 10^3/uL (1.5-8.5); NEUTROPHILS % 63.5 % (36.0-66.0); PLATELET COUNT, AUTOMATED 277 10^3/uL (150-450); WHITE BLOOD COUNT 7.7 10^3/uL (4.0-10.0)
[2023-10-23 18:11] LABS: LIPASE 34 U/L (12-53)
[2023-10-23 18:12] LABS: CPK CREATINE PHOSPHOKINASE 200 U/L (46-171)
[2023-10-23 18:13] LABS: ALBUMIN 3.8 G/DL (3.2-5.2); ALKALINE PHOSPHATASE 31 U/L (46-116); ALT/SGPT 29 U/L (7.0-40); AST/SGOT 26 U/L (<34); BILIRUBIN,DIRECT 0.2 MG/DL (<0.4); BILIRUBIN,TOTAL 0.5 MG/DL (0.3-1.2); BLOOD UREA NITROGEN 15 MG/DL (9-23); CALCIUM LEVEL 8.8 MG/DL (8.5-10.1); CARBON DIOXIDE LEVEL 23 MMOL/L (20-31); CHLORIDE LEVEL 101 MMOL/L (98-107); CK-MB VALUE MASS 3.5 NG/ML (<3.6); CREATININE FOR GFR 1.02 MG/DL (0.70-1.30); GLOMERULAR FILTRATION RATE > 60.0 (>56); GLUCOSE, FASTING 143 MG/DL (60-100); MB/CK RELATIVE INDEX 1.75 (< OR =4); POTASSIUM SERUM 3.2 MMOL/L (3.5-5.1); SODIUM LEVEL 137 MMOL/L (136-145); TOTAL PROTEIN 7.1 G/DL (5.7-8.2)
[2023-10-23] MEDS: NS 1,000 ML IV ONE (18:14)
[2023-10-23] MEDS: PANTOPRAZOLE 40MG VIAL IV ONE (18:14)
[2023-10-23 19:26] LABS: CK-MB VALUE MASS 3.1 NG/ML (<3.6)
[2023-10-23 19:29] LABS: MB/CK RELATIVE INDEX 1.58 (< OR =4)
[2023-10-23] MEDS ORDERED: PROT1TAB2 PO (21:06)
[2023-10-23] MEDS ORDERED: SUCR1SS PO (21:06)
[2023-10-23 21:20] VITALS: BP 157/66; TEMP 98.8; O2SAT 98
== END 2023-10-23 21:30 | disposition home or self-care (01) ==
LOC: M ED 17:08 → EDBD 17:08 → M ED 21:30
DX: K29.20 Alcoholic gastritis without bleeding (principal); R00.0 Tachycardia, unspecified; F17.210 Nicotine dependence, cigarettes, uncomplicated; F10.10 Alcohol abuse, uncomplicated; Z79.899 Other long term (current) drug therapy
CPT/HCPCS: 71045; 71275; 74174; 80047; 80048; 80076; 82550; 82553; 83690; 84484; 85025; 93005; 93041; 94760; 96361; 96374; 99285; C9113; Q9967

== ENCOUNTER → 2024-01-06 | Outpatient (REF) | payer OTHER ==
[~2024-01-06] MED LIST: PROT1TAB2 PO; SUCR1SS PO
[2024-01-06 13:53] LABS: HEMOGLOBIN A1c 5.3 % (4.0-6.0)
[2024-01-06 13:59] LABS: ETHYL ALCOHOL (ETHANOL) 0.219 % (0.000-0.010)
[2024-01-06 14:01] LABS: BLOOD UREA NITROGEN 10 MG/DL (9-23); CALCIUM LEVEL 8.7 MG/DL (8.5-10.1); CARBON DIOXIDE LEVEL 27 MMOL/L (20-31); CHLORIDE LEVEL 107 MMOL/L (98-107); CPK CREATINE PHOSPHOKINASE 244 U/L (46-171); CREATININE FOR GFR 0.71 MG/DL (0.70-1.30); GLOMERULAR FILTRATION RATE > 60.0 (>56); GLUCOSE, FASTING 88 MG/DL (60-100); MAGNESIUM LEVEL 1.9 MG/DL (1.8-2.4); POTASSIUM SERUM 3.7 MMOL/L (3.5-5.1); SODIUM LEVEL 138 MMOL/L (136-145)
[2024-01-06 14:03] LABS: FOLATE > 24.0 NG/ML (>5.4); VITAMIN B12 LEVEL 648 PG/ML (211-911)
== END ==
LOC: M LAB REF 12:26
PROVIDERS: ATTEND Nurse Practitioner Family
DX: E87.6 Hypokalemia (principal); R73.9 Hyperglycemia, unspecified; F10.20 Alcohol dependence, uncomplicated; R74.8 Abnormal levels of other serum enzymes